=== PATIENT | male | born 1975 ===

== ENCOUNTER 2018-05-08 11:36 | Day surgery (SDC) | payer OTHER ==
[2018-05-08] VITALS (10 sets, daily range): BP systolic 103–125; BP diastolic 60–78
[~2018-05-08] VITALS: Ht 162.6 cm; Wt 83.9 kg
--- NOTE | 2018-05-08 07:47 | Pre-Procedure Note/Attestation ---
Pre-Procedure Note/Attestation Complete Prior to Procedure Planned Procedure: right Procedure Narrative: shoulder arthroscopy, sad Indications for Procedure Pre-Operative Diagnosis: right shoulder internal derangement Attestation I attest that I discussed the nature of the procedure; its benefits; risks and complications; and alternatives (and the risks and benefits of such alternatives ), prior to the procedure, with the patient (or the patient's legal sales donor recruitment representative). I attest that, if there was a reasonable possibility of needing a blood transfusion, the patient (or the patient's legal sales donor recruitment representative) was given the [facility] standardized written summary, pursuant to the [place] Blood Safety Act ([place] Health and Safety Code # 1645, as amended). I attest that I re-evaluated the patient just prior to the surgery and that there has been no change in the patient's H&P, except as documented below: Reggie Dunlap MD May 08, 2018 07:47
--- NOTE | 2018-05-08 07:48 | Operative Note - PDOC ---
Operative Note Operative Note Pre-op Diagnosis: right shoulder internal derangement Procedure: see op report Post-op Diagnosis: same as pre-op plus Operative Findings: consistent w/pre-op dx studies Anesthesia: regional Specimen: none Complications: none Condition: stable Estimated Blood Loss: none Implant(s) used?: No Reggie Dunlap MD May 08, 2018 07:48
[~2018-05-08 11:36] MED LIST: D5 1/2NS 1,000 ML IV SCH; HYDROmorphone 1mg/ml Carpuject SUBQ PRN; Norco 5mg/325mg tab ORAL PRN; Tylenol #3 tab (300mg/30mg) ORAL PRN; ceFAZolin 1gm in D5W 55ml IVP ONE; celeBREX 200mg Cap **SURGERY PATIENTS ONLY ORAL ONE; oxyCONTIN 20mg tab ORAL ONE
[2018-05-08] MEDS ORDERED: PERCOCET 5-3251 EACH ORAL (12:32)
[2018-05-08] MEDS ORDERED: GABAPENTIN600 MG ORAL (12:32)
[2018-05-08] MEDS ORDERED: celeBREX 200mg Cap **SURGERY PATIENTS ONLY ORAL ONE (12:41)
[2018-05-08] MEDS ORDERED: oxyCONTIN 20mg tab ORAL ONE (12:41)
[2018-05-08] MEDS ORDERED: Zemuron 50mg/5ml Inj IV ONE (14:00)
[2018-05-08] MEDS ORDERED: LR 1000ml ONE (14:00)
[2018-05-08] MEDS ORDERED: NS Irrig 4000ml IRRIG ONE (14:00)
[2018-05-08] MEDS ORDERED: Ketorolac 30mg Inj ONE ×2 (14:20→15:26)
[2018-05-08] MEDS ORDERED: Morphine Sulfate PF 10 ML ONE (14:20)
[2018-05-08] MEDS ORDERED: Bupivacaine w/Epi 0.25% 30ml Vial INJ ONE (14:20)
[2018-05-08] MEDS ORDERED: Kenalog-40 1ml Vial ONE (14:20)
[2018-05-08] MEDS ORDERED: Lidocaine 1% MPF 10mg/ml 5ml ONE (14:22)
[2018-05-08] MEDS ORDERED: fentaNYL 100 mcg/2 mL IV ONE (14:22)
[2018-05-08] MEDS ORDERED: Propofol 200mg/20ml IV ONE (14:22)
[2018-05-08] MEDS ORDERED: Ropivacaine 5mg/ml Vial 30ml INJ ONE (14:24)
[2018-05-08] MEDS ORDERED: EPINEPHrine 1mg/1ml Amp ONE (14:39)
[2018-05-08] MEDS ORDERED: LR 1000ml 1,000 ML IVLG SCH (15:03)
--- NOTE | 2018-05-08 15:03 | Anethesia Preoperative Eval ---
Anesthesia Pre-op PMH/ROS General Date of Evaluation: May 08, 2018 Anesthesiologist: Carmelo ASA Score: ASA 2 Mallampati Score Class I : Soft palate, uvula, fauces, pillars visible Class II: Soft palate, uvula, fauces visible Class III: Soft palate, base of uvula visible Class IV: Only hard plate visible Mallampati Classification: Class II Surgeon: Germán Diagnosis: Right shoulder derangement Surgical Procedure: Right shoulder arthroscopy Anesthesia History: none Family History: no anesthesia problems Allergies: Coded Allergies: No Known Allergies (Unverified , 05/08/18) Medications: see eMAR Past Medical History Cardiovascular: Reports: other - HLD; Denies: HTN, CAD, [place], valve dz, arrhythmia Pulmonary: Denies: asthma, COPD, MAY, other Gastrointestinal/Genitourinary: Denies: GERD, CRI, ESRD, other Neurologic/Psychiatric: Denies: dementia, CVA, depression/anxiety, TIA, other Endocrine: Denies: DM, hypothyroidism, steroids, other HEENT: Denies: cataract (L), cataract (R), glaucoma, [place] (L), [place] (R), other Hematology/Immune: Denies: anemia, DVT, bleeding disorder, other Musculoskeletal/Integumentary: Denies: OA, RA, DJD, DDD, edema, other PSxH Narrative: Denies Anesthesia Pre-op Phys. Exam Physician Exam Last Vital Signs Date Time Temp Pulse Resp B/P (MAP) Pulse Ox O2 Delivery O2 Flow Rate FiO2 05/08/18 12:27 Room Air 05/08/18 12:20 97.0 52 18 103/60 (74) 98 97.0 Constitutional: NAD Cardiovascular: RRR Respiratory: CTA Airway Exam Mallampati Score: Class II MO: full ROM: full Teeth: missing, intact Anesthesia Pre-op A/P Labs see chart Studies Pre-op Studies: EKG - sr Risk Assessment & Plan Assessment: ASA II Plan: GA with interscalene never block Status Change Before Surgery: No Pre-Antibiotics Drug: Ancef 2g Given Within 1 Hr of Incision: Yes Time Given: 14:30 Ciara Morrissey MD May 08, 2018 15:03
[2018-05-08] MEDS ORDERED: Midazolam 2mg/2ml Inj IVP PRN (15:15)
[2018-05-08] MEDS ORDERED: fentaNYL 100 mcg/2 mL IV PRN (15:15)
[2018-05-08] MEDS ORDERED: LORazepam Inj 2mg/ml 1ml IV PRN (15:15)
[2018-05-08] MEDS ORDERED: Ketorolac 30mg Inj IV PRN (15:15)
[2018-05-08] MEDS ORDERED: Hydromorphone 0.5mg/0.5ml inj IVP PRN (15:15)
[2018-05-08] MEDS ORDERED: Labetalol 5mg/ml 20ml vial IV PRN (15:15)
[2018-05-08] MEDS ORDERED: Metoclopramide 10mg/2ml Inj IVP PRN (15:15)
[2018-05-08] MEDS ORDERED: DiphenhydrAMINE 50mg/ml Inj IVP PRN (15:15)
[2018-05-08] MEDS ORDERED: Ketamine 500mg Inj ONE (15:21)
--- NOTE | 2018-05-08 16:07 | Immediate Post-Op Evaluation ---
Immediate Post-Op Evalulation Immediate Post-Op Evalulation Procedure: Right shoulder arthroscopy Date of Evaluation: May 08, 2018 Time of Evaluation: 16:08 IV Fluids: 800 Blood Products: 0 Estimated Blood Loss: min Urinary Output: 0 Blood Pressure Systolic: 114 Blood Pressure Diastolic: 76 Pulse Rate: 85 Respiratory Rate: 16 O2 Sat by Pulse Oximetry: 99 Temperature (Fahrenheit): 97.8 Pain Score (1-10): 0 Nausea: No Vomiting: No Complications 0 Patient Status: awake, reacts, patent, none Hydration Status: adequate Drug: Ancef 2g Given Within 1 Hr of Incision: Yes Time Given: 14:30 Ciara Morrissey MD May 08, 2018 16:07
--- NOTE | 2018-05-08 16:07 | 48 Hour Post Anesthesia Eval ---
Post Anesthesia Evaluation Procedure: Right shoulder arthroscopy Date of Evaluation: May 08, 2018 Time of Evaluation: 17:20 Blood Pressure Systolic: 114 0: 69 Pulse Rate: 69 Respiratory Rate: 18 Temperature (Fahrenheit): 98.6 O2 Sat by Pulse Oximetry: 99 Airway: patent Nausea: No Vomiting: No Pain Intensity: 0 Hydration Status: adequate Cardiopulmonary Status: at baseline Mental Status/LOC: patient returned to baseline Post-Anesthesia Complications: 0 Follow-up care needed: ready to discharge Ciara Morrissey MD May 08, 2018 16:07
--- NOTE | 2018-05-09 01:59 | Operative Note - Dictated ---
DATE OF OPERATION: 05/08/2018 PREOPERATIVE DIAGNOSIS: Status post closed treatment of type 2 acromion with subdeltoid bursitis with adhesive capsulitis. Postop Diagnosis: Same PROCEDURES: 1. Right shoulder diagnostic arthroscopy. 2. Right shoulder lysis of intraarticular adhesions. 3. Right shoulder subacromial decompression and bursectomy. SURGEON: Reggie Dunlap M.D. ANESTHESIA: Interscalene with general. INDICATION FOR PROCEDURE: The patient is a pleasant gentleman who sustained a significant injury to his right shoulder. He had a greater tuberosity fracture, which appeared healed with some significant restricted range of motion and difficulty with overhead activities. He had an MRI, which showed some evidence of bursitis with a healed greater tuberosity fracture. Given that the patient has significant pain and discomfort, he elected to undergo right shoulder arthroscopy, possible lysis of adhesions, and pancapsular release with concurrent subacromial decompression and bursectomy. DESCRIPTION OF PROCEDURE: After informed consent was obtained, the patient was brought to the operating room. The patient was placed under interscalene with general anesthesia. The patient was then carefully placed in beach-chair position. Right shoulder was prepped and draped in sterile manner. Ancef was administered. Time-out was performed. At this point, exam under anesthesia showed forward elevation was approximately 120, abduction was 90, external rotation was 70, and internal rotation was about 50. At this point, a posterolateral stab incision was then made. Trocar was introduced into the glenohumeral joint. There were significant adhesions in the intraarticular space. Using a spinal needle, an anterior portal was established in the rotator interval. There were significant adhesions that were intraarticular that were debrided using a combination of jailene. There appeared to be no significant chondral damage that was visible through the joint except for an area where there was evidence of concern for avascular necrosis. The superior labrum appeared to be intact along with the biceps tendon. The undersurface of the rotator cuff had some adhesions. Although the footprint was altered, there was no obvious evidence of full-thickness tear. At this point, the camera was repositioned in the subacromial space. There were significant adhesions and hypertrophic bursal tissue. A lateral working portal was established. Bursectomy was identified. The undersurface of the acromion was identified. Acromioplasty was started from lateral to medial and completed from posterior to anterior. Once that was done, bursectomy was completed posteriorly. Once that was completed, the instruments were removed. Portal sites were closed with 3-0 Monocryl sutures. Steri-Strips and a sterile dressing were applied. The patient was awakened and taken to recovery room with stable vital signs. ESTIMATED BLOOD LOSS: None. COMPLICATIONS: None. SPECIMENS: None. IMPLANTS: None. Reggie Dunlap M.D. DR: NELLIE JOB#: [id number] CC: NICK
== END 2018-05-08 17:30 | disposition home or self-care (01) ==
LOC: SUR 11:36
DX: M75.01 Adhesive capsulitis of right shoulder (principal); M75.51 Bursitis of right shoulder; E78.5 Hyperlipidemia, unspecified
CPT/HCPCS: 29825; 29826; J0171; J0690; J1885; J2250; J2274; J2405; J2704; J2795; J3010; J3301; J3490; 94003; 94150